=== PATIENT | female | born 1990 | race Caucasian/White ===

== ENCOUNTER → 2022-06-14 08:54 | Outpatient (CLI) | payer BC, SELFPAY ==
--- NOTE | ~2022-06-14 | US_ITS ---
EXAMINATION: US OB /maternal detail DATE: 06/14/2022 09:45 INDICATION: survey TECHNIQUE: Multiple obstetric sonographic images performed. FINDINGS: No prior studies for comparison. There is a single living fetus in breech presentation. The placenta is posterior without placenta pr evia. Placental margin to the cervix is 5 cm. Amniotic fluid volume is subjectively normal. cardiac activity and movement is noted with a heart rate of 143 beats per minute. The following anatomy was identified as normal: 4 chamber heart 3 vessel cord cord insertion kidneys urinary bladder stomach spine diaphragm ventricles cisterna magna cerebellum The following biometric data were obtained: BPD: 47mm corresponds to gestational age 20 weeks 1 days. Head circumference: 178 mm corresponds to gestational age 20 weeks 2 days. Abdominal circumference: 154 mm corresponds to gestational age 20 weeks 4 days. Femur length: 33 mm corresponds to gestational age 20 weeks 3 days. Head circumference to abdominal circumference ratio: 1.15 (normal range for expected gestational age is 1.07-1.25). Estimated weight: 358 grams +/- 54 grams using Hadlock method, 49%. IMPRESSION: 1: Single living intrauterine with an estimated gestational age of 20weeks 3days by current ultrasound measurements, with an EDC of 10/29/2022 in breech presentation. 2. Normal survey. Reviewed, dictated and finalized at location A. NKLER DRIVER IMPRESSION: 1: Single living intrauterine with an estimated gestational age of 20 weeks 3days by current ultrasound measurements, with an EDC of 10/29/2022 in gemma ech presentation. 2. Normal survey.
== END ==
PROVIDERS: PCP Advanced Practice Midwife; Visit Provider Advanced Practice Midwife
DX: Z36.9 Encounter for antenatal screening, unspecified (principal); Z3A.00 Weeks of gestation of pregnancy not specified
CPT/HCPCS: 76805

== ENCOUNTER → 2022-07-17 07:45 | Outpatient (CLI) | payer BC, SELFPAY ==
--- NOTE | ~2022-07-17 | US_ITS ---
Limited Abdominal Sonogram: Real-time sonographic imaging of the right upper quadrant was performed. Clinical History: Right upper quadrant pain Findings: The liver appears normal with no evidence of mass lesion or bile duct dilatation. Main por samir vein demonstrates normal direction of flow. The gallbladder is well distended, and appears normal with no evidence of gallstone or wall thickening. The common bile duct measures 4 mm. The visualize d pancreas, aorta, and IVC are unremarkable. Right kidney measures 11.1 cm in length. There is mild t o moderate right hydronephrosis. Impression: [id number] right hydronephrosis. No other significant findings. Reviewed, dictated and finalized at location . LER TENDER Impression: [id number] right hydronephrosis. No other significant findings.
== END ==
PROVIDERS: Visit Provider Obstetrics & Gynecology Gynecology
DX: R10.11 Right upper quadrant pain (principal); N13.30 Unspecified hydronephrosis
CPT/HCPCS: 76705

== ENCOUNTER 2022-10-24 07:49 | Inpatient (IN) | payer BC, SELFPAY ==
[2022-10-24] VITALS (124 sets, daily range): BP systolic 82–151; BP diastolic 48–129; PULSE 67–125; RESP 16–18; TEMP 36.2–36.4; O2SAT 79–100; BMI 27.5
--- NOTE | ~2022-10-24 | MR_ITS ---
EXAMINATION: MR lumbar spine wo/w con DATE: 10/26/2022 14:35 INDICATION: Left lower extremity weakness after epidural TECHNIQUE: Magnetic resonance imaging (MRI) of the lumbar spine was performed without and with 15 mL Multihance intravenous contrast. Sequences included sagittal T2-weighted FSE, sagittal T2-weighted FS FSE, and sagittal and axial T1-weighted FSE. Postcontrast sequences included axial T2-weighted FSE, sagittal T1-weighted FSE, and axial and sagittal T1-weighted FS FSE. COMPARISON: None FINDINGS: Alignment is normal. Vertebral body heights are normal. Normal marrow signal. This desiccation and m ild disc height loss at T11-T12. The conus medullaris terminates at L1-L2. There is normal signal in the caudal spinal cord. Normal appearance to the epidural fat throughout the lumbar and lower thoraci c spine. Mild subcutaneous edema posterior to the lumbar spine. Paravertebral soft tissues are otherw ise unremarkable. Enlarged post gravid uterus. No abnormally enhancing lesions identified. The follow ing disc levels are specifically discussed: T12-L1: Disc is mildly bulging. There is no facet joint osteoarthritis. There is no neural foraminal stenosis. There is no central canal stenosis. L1-L2: Disc is mildly bulging. There is mild bilateral facet joint osteoarthritis. There is no neural foraminal stenosis. There is minimal central canal stenosis. L2-L3: Disc is mildly bulging. There is mild bilateral facet joint osteoarthritis. There is no neural foraminal stenosis. There is mild central canal stenosis. L3-L4: Disc is mildly bulging. There is mild bilateral facet joint osteoarthritis. There is mild bila teral neural foraminal stenosis. There is mild central canal stenosis. L4-L5: Disc is mildly bulging. There is mild bilateral facet joint osteoarthritis. There is mild bila teral neural foraminal stenosis. There is mild central canal stenosis. L5-S1: Disc is minimally bulging. There is mild to moderate bilateral facet joint osteoarthritis. The re is no neural foraminal stenosis. There is no central canal stenosis. IMPRESSION: 1. Minimal to mild lumbar spondylosis. No evident acute abnormality. Reviewed, dictated and finalized at location A.
--- NOTE | 2022-10-24 08:55 | LDADM ---
This patient, Sowmya Vail, was admitted to Labor/Delivery/Recovery 104 on 10/24/22 at 07:49. Plans for labor, pain management and were discussed with patient. Patient/family oriented to hospital policies and general routines including ID bracelet, bed and alarms, visiting hours, pain management, procedures, bathroom and other care routines, personal items, smoking policy, room service/diet and guest tray routines, infant security routines, and visiting hours. Patient/Family are encouraged to report perceived risks to care and to ask questions if they do not understand what they are told or what they should do. See OBIX for further documentation.
[2022-10-24 09:11] LABS: Basophils Percent Auto 0.3 % (0.2-1.2); Eosinophils Percent Auto 0.2 % (0-4.4); Hematocrit 36.7 % (37.0-47.0); Hemoglobin 12.5 g/dL (12.0-15.0); Immature Granulocyte Absolute 0.15 K/mm3 (0.00-0.031); Immature Granulocyte Percent A 1.4 % (0-0.5); Lymphocytes Absolute Auto 1.74 K/mm3 (0.9-3.2); Lymphocytes Percent Auto 15.9 % (18.3-44.2); Mean Corpuscular HGB Conc 34.1 g/dl (32-36); Mean Corpuscular Hemoglobin 33.3 pg (26-34); Mean Corpuscular Volume 97.9 fl (80-100); Mean Platelet Volume 11.2 fl (7.4-10.4); Monocytes Absolute Auto 0.6 K/mm3 (0.1-0.6); Monocytes Percent Auto 5.6 % (2.6-8.5); Neutrophils Absolute Auto 8.4 K/mm3 (1.3-6.7); Neutrophils Percent Auto 76.6 % (45.5-73.1); Platelet Count Result 182 k/mm3 (150-375); Red Blood Count 3.75 M/mm3 (4.2-5.4); Red Cell Distribution Width 13.3 % (11.5-14.5); White Blood Count 10.9 K/mm3 (4.5-10.0)
[2022-10-24 11:30] LABS: Alanine Aminotransferase 18 U/L (6-35); Albumin Level 3.7 g/dL (3.5-5.1); Alkaline Phosphatase 282 U/L (38-126); Anion Gap 7 mmol/L (8-16); Aspartate Amino Transferase 29 U/L (14-36); Bilirubin,Total 0.5 mg/dL (0.2-1.3); Blood Urea Nitrogen 10 mg/dL (7-17); Calcium 8.8 mg/dL (8.4-10.2); Carbon Dioxide 23 mmol/L (22-30); Chloride 105 mmol/L (98-107); Estimated CRCL calculation 116 ml/min; Estimated Glomerular Filt Rate > 60; Glucose 79 mg/dL (65-110); Potassium 3.9 mmol/L (3.4-5.0); Sodium 135 mmol/L (137-145); Uric Acid 4.7 mg/dL (2.5-7.5)
[2022-10-24] MEDS: miSOPROStol 25 MCG TABLET PO (11:43)
--- NOTE | 2022-10-24 11:55 | WPDOBADMIT ---
Obstetrics - Admit Note Admission Note: record reviewed. No pertinent additions to the history and/or any subsequent changes in the physical findings that are not consistent with the expected course of the were found. Additions to the history and/or subsequent changes in the physical findings follow. SROM of clear fluid this am.
--- NOTE | 2022-10-24 11:56 | PM.OBPNLAB ---
Pain Control Date/time seen: 10/24/22 11:50 Pain control: tolerating well Comments: Sitting on labor ball. Pt's mother and spouse present and supportive. Feeling very occasional cramping. Contractions Monitor mode: External Contraction pattern: Irregular Status status: Category l Comments: Baseline 135 with moderate variability and accelerations. Assessment and Plan Assessment: induction ongoing Comments: CNM to bedside. Patient very comfortable at this time. tracing category 1 with occasional contractions. She recently had a buccal misoprostol. Denies leaking much amniotic fluid since spontaneous rupture this morning. Discussed option of breaking the forebag versus waiting. Plan to wait at least 4 hours and evaluate labor progress at that time. She would prefer rupture of the forebag before starting Pitocin. Discussed labor and process and all questions answered. Anticipate vaginal .
--- NOTE | 2022-10-24 12:00 | PM.OBDSVD ---
DS: Admitting Diagnosis Discharge Date 10/26/2022 Admitting Diagnosis 32 y.o. 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 2021 Anxiety GERD Hx Hypoglycemia DS: Discharge Diagnosis Discharge Diagnosis (1) (normal spontaneous vaginal delivery): Code(s): O80 - Encounter for full-term uncomplicated delivery Status: Acute (2) Lactating mother: Code(s): Z39.1 - Encounter for care and examination of lactating mother Status: Acute OB - DS: Summary Hospital Course Hospital Course: uncomplicated OB Procedures : Ultrasound OB Procedures Intrapartum: Spontaneous Vag Delivery and Other (Antibiotics for prolonged ROM) OB Procedures: : None Peripartum Data Infant Delivery Method: Natural Vaginal Laceration Description: Vaginal - 1st Degree and Labial Episiotomy description: None complications: none Status at Discharge Cognitive/behavioral status at discharge: WNL Overall status at discharge: patient is progressing back to baseline Time Spent with Patient Time attestation: Total time spent providing and/or coordinating discharge services: Exam Narrative: Alert and oriented. Mood is pleasant and cooperative. Urinating without difficulty. Denies passing any large clots. Perineum with minimal edema. Fundus firm and below umbilicus. Const: General: cooperative, healthy appearing, no acute distress and alert Orientation/consciousness: patient oriented x3 Limitations: no limitations Resp: Effort & Inspection: normal respiratory effort Auscultation: clear to auscultation bilaterally Cardio: Rate: regular rate GI: Inspection: normal to inspection Skin: General skin exam: normal color and other (peteichiae to face/neck) Neuro: General: patient oriented x3 Sensory Exam: normal sensation (to BLE) Extrem: General: normal to inspection Right lower extremity: normal to inspection and normal capillary refill Left lower extremity: normal to inspection and normal capillary refill Other: normal abduction and adduction to right hip. Slightly floppy abduction to left hip, UNABLE to adduct R hip. Equal pedal pulses. Trace edema to LLE, non pitting. Normal flexion and extension of both feet. Psych: Appearance: grossly normal Mental Status: mental status grossly normal Affect: normal affect Thought process: Normal thought process present DS: Data Data Completed and Pending Labs on day of discharge: Labs from last 24 hours 10/24/22 10/24/22 10/24/22 11:12 09:00 09:00 WBC RBC Hgb Hct MCV MCH MCHC RDW Plt Count MPV Immature Gran % (Auto) Neut % (Auto) Lymph % (Auto) [place] % (Auto) Eos % (Auto) Baso % (Auto) Lymph # (Auto) [place] # (Auto) Eos # (Auto) Baso # (Auto) Abs Immat Gran (auto) Absolute Neuts (auto) Absolute Nucleated RBC Nucleated RBC % Sodium 135 L Potassium 3.9 Chloride 105 Carbon Dioxide 23 Anion Gap 7 L BUN 10 Creatinine 0.60 L Estim Creat Clear Calc 116 Estimated GFR > 60 Glucose 79 Uric Acid 4.7 Calcium 8.8 Total Bilirubin 0.5 AST 29 ALT 18 Alkaline Phosphatase 282 H Total Protein 7.0 Albumin 3.7 RPR Pending Blood Type O Positive Antibody Screen Negative 10/24/22 09:00 WBC 10.9 H RBC 3.75 L Hgb 12.5 Hct 36.7 L MCV 97.9 MCH 33.3 MCHC 34.1 RDW 13.3 Plt Count 182 MPV 11.2 H Immature Gran % (Auto) 1.4 H Neut % (Auto) 76.6 H Lymph % (Auto) 15.9 L [place] % (Auto) 5.6 Eos % (Auto) 0.2 Baso % (Auto) 0.3 Lymph # (Auto) 1.74 [place] # (Auto) 0.6 Eos # (Auto) 0.0 Baso # (Auto) 0.0 Abs Immat Gran (auto) 0.15 H Absolute Neuts (auto) 8.4 H Absolute Nucleated RBC 0.0 Nucleated RBC % 0.0 Sodium Potassium Chloride Carbon Dioxide
[2022-10-24] MEDS: LACTATED RINGERS 1,000 ML 125 ML IV CONT ×2 (16:53→19:00)
[2022-10-24] MEDS: OXYTOCIN 30 UNITS/NS 500 ML 30 UNITS/500 ML BAG IV CONT (16:55)
--- NOTE | 2022-10-24 17:11 | PM.OBPNLAB ---
Pain Control Date/time seen: 10/24/22 17:00 Pain control: tolerating well Comments: Feeling occasional cramping. Pelvic Exam Dilation (cm): 1 (1.5) Effacement (%): 80 station: -1 Comments: Forebag ruptured. Contractions Monitor mode: External Contraction pattern: Irregular Status status: Category l Assessment and Plan Pitocin rate (mU/min): 2 Plan: begin patient augmentation Comments: Discussed plan of care. Pt agreeable to rupturing forebag. Amniotomy performed and small amount of pink tinged fluid returned. Discussed IUPC placement but pt declines at this time. Plan to increase oxytocin as needed to achieve adequate contraction pattern. Discussed starting antibiotics at 18 hours of rupture for infection prophylaxis. Pt is agreeable. Anticipate vaginal .
[2022-10-24 17:15] LABS: Rapid Plasma Reagin Non-Reactive (NonReactive)
--- NOTE | 2022-10-24 18:38 | WPDANESEPP ---
Anes - Eval Pre Procedure Procedure: labor epidural Date/Time: 10/24/22 18:38 Surgeon: obie Preop Diagnosis: pain during labor Pre Op Diagnosis: Leaking Patient Data Age: 32 Gender: F Height: 1.65 m Weight: 75 kg Last Vital Signs Temp 36.4 C L 10/24/22 18:00 Pulse 95 10/24/22 18:31 Resp 18 10/24/22 18:00 BP 122/85 10/24/22 18:31 O2 Del Method Room Air 10/24/22 08:52 Allergies Allergy/AdvReac Type Severity Reaction Status Date / Time No Known Allergies Allergy Unknown Verified 06/19/14 23:00 Home Medications Medication Instructions Recorded Confirmed Type aspirin 81 mg tablet 81 mg PO DAILY 10/03/22 10/03/22 History ferrous sulfate 325 mg (65 mg 325 mg PO EVERY OTHER DAY 10/03/22 10/03/22 History iron) tablet prenat.vits,eliseo,sek-kifx-ehjkc 1 tablet PO HS 10/03/22 10/03/22 History calcium carbonate-vitamin D3 500 2 cap PO DAILY 10/24/22 10/24/22 History mg (1,250 mg)-50 unit capsule polyethylene glycol 3350 17 17 g PO DAILY 10/24/22 10/24/22 History gram/dose oral powder (Miralax) valacyclovir 500 mg tablet 500 mg PO DAILY 10/24/22 10/24/22 History Laboratory Tests 10/24/22 10/24/22 10/24/22 09:00 09:00 09:00 WBC 10.9 K/mm3 H K/mm3 (4.5-10.0) RBC 3.75 M/mm3 L M/mm3 (4.2-5.4) Hgb 12.5 g/dL g/dL (12.0-15.0) Hct 36.7 % L % (37.0-47.0) MCV 97.9 fl fl (80-100) MCH 33.3 pg pg (26-34) MCHC 34.1 g/dl g/dl (32-36) RDW 13.3 % % (11.5-14.5) Plt Count 182 k/mm3 k/mm3 (150-375) MPV 11.2 fl H fl (7.4-10.4) Immature Gran % (Auto) 1.4 % H % (0-0.5) Neut % (Auto) 76.6 % H % (45.5-73.1) Lymph % (Auto) 15.9 % L % (18.3-44.2) [place] % (Auto) 5.6 % % (2.6-8.5) Eos % (Auto) 0.2 % % (0-4.4) Baso % (Auto) 0.3 % % (0.2-1.2) Lymph # (Auto) 1.74 K/mm3 K/mm3 (0.9-3.2) [place] # (Auto) 0.6 K/mm3 K/mm3 (0.1-0.6) Eos # (Auto) 0.0 K/mm3 K/mm3 (0-0.3) Baso # (Auto) 0.0 K/mm3 K/mm3 (0.0-0.1) Abs Immat Gran (auto) 0.15 K/mm3 H K/mm3 (0.00-0.031) Absolute Neuts (auto) 8.4 K/mm3 H K/mm3 (1.3-6.7) Absolute Nucleated RBC 0.0 K/mm3 K/mm3 (0.0-0.012) Nucleated RBC % 0.0 % % (0.0-0.2) Sodium Potassium Chloride Carbon Dioxide Anion Gap BUN Creatinine Estim Creat Clear Calc Estimated GFR Glucose Uric Acid Calcium Total Bilirubin AST ALT Alkaline Phosphatase Total Protein Albumin RPR Non-reactive (NonReactive) Blood Type O Positive Antibody Screen Negative 10/24/22 11:12 WBC RBC Hgb Hct MCV MCH MCHC RDW Plt Count MPV Immature Gran % (Auto) Neut % (Auto) Lymph % (Auto) [place] % (Auto) Eos % (Auto) Baso % (Auto) Lymph # (Auto) [place] # (Auto) Eos # (Auto) Baso # (Auto) Abs Immat Gran (auto) Absolute Neuts (auto) Absolute Nucleated RBC Nucleated RBC % Sodium 135 mmol/L L mmol/L (137-145) Potassium 3.9 mmol/L mmol/L (3.4-5.0) Chloride 105 mmol/L mmol/L (98-107) Carbon Dioxide 23 mmol/L mmol/L (22-30) Anion Gap 7 mmol/L L mmol/L (8-16) BUN 10 mg/dL mg/dL (7-17) Creatinine 0.60 mg/dL L mg/dL (0.7-1.0) Estim Creat Clear Calc 116 ml/min ml/min Estimated GFR > 60 (59 - ) Glucose 79 mg/dL mg/dL (65-110) Uric Acid 4.7 mg/dL mg/dL (2.5-7.5) Calcium 8.8 mg/dL mg/dL (8.4-10.2) Total Bilirubin 0.5 mg/dL mg/dL (0.2-1.3) AST 29 U/L U/L (14-36) ALT 18
[2022-10-24] MEDS: ONDANSETRON INJ 4 MG/2 ML VIAL IV PUSH (20:36)
[2022-10-25] VITALS (22 sets, daily range): BP systolic 77–144; BP diastolic 49–112; PULSE 72–117; RESP 16; TEMP 36.2–36.6; O2SAT 95–98
[2022-10-25] MEDS: AMPICILLIN 2 GM/NS 100 ML 2 GM/100 ML BAG IVPB (00:20)
[2022-10-25] MEDS: OXYTOCIN 30 UNITS/NS 500 ML 30 UNITS/500 ML BAG 125 UNITS IV CONT (02:05)
--- NOTE | 2022-10-25 02:28 | PM.OBPRVD ---
OB - Delivery Note Procedure Delivery date: 10/25/22 Procedure: Induction method: Per Misoprostol Protocol and Per Pitocin Protocol Delivery monitor: External FHT and External Uterine Route of delivery: Episiotomy description: None Laceration Description: Vaginal and Labial (2cm left lower labial, 5cm right labial and full thickness tear) Delivery repair: vicryl Specimen: No Quantitative Blood Loss (ml): 250 Anesthesia type: Epidural Disposition: Floor Narrative: Patient arrived to Labor and delivery after spontaneous rupture of membranes. After 4 hours, and no cervical change, she was given buccal misoprostol. After that time her forebag was ruptured and oxytocin was started. She progressed to complete dilation and pushed with contractions. She brought the head to a crown and delivered over an intact perineum. There was good restitution, followed by delivery of the anterior and posterior shoulders and the remainder of the . Terminal meconium was noted as the infant was placed on the maternal abdomen and dried and stimulated by the nursery team. After 1 minute of life, the cord was doubly clamped and cut. Cord blood, cord gases, and cord segment were obtained. There was excellent hemostasis. All delivery counts correct. Mother and baby skin to skin in the delivery room. weight unavailable at the time of this note. Baby Date of : 10/25/22 Time of : 01:29 Weeks of gestation at delivery: 39 gender: Female presentation: vertex position: Right Occiput Anterior Placenta delivery description: Spontaneous Cord Vessel Description: 3 Vessels, Clamped/Cut and Delayed Cord Clamping score one minute: 9 score five minutes: 9
[2022-10-25] MEDS: BENZOCAINE 20% AER SPR (*SP) 56 GM CAN 1 SPRAY (04:36)
[2022-10-25] MEDS: WITCH HAZEL 40 PADS 1 PAD (04:36)
[2022-10-25] MEDS: IBUPROFEN 600 MG TABLET PO ×3 (05:30→17:29)
[2022-10-25] MEDS: MULTIVIT/MIN/PREN/FOL AC/IRON TABLET 1 TAB PO (07:36)
[2022-10-25] MEDS: DOCUSATE SODIUM 100 MG CAPSULE PO ×2 (07:36→17:31)
[2022-10-25] MEDS: ACETAMINOPHEN 325 MG TABLET 650 MG PO ×2 (13:58→20:33)
[2022-10-26] MEDS: IBUPROFEN 600 MG TABLET PO ×3 (00:04→17:18)
[2022-10-26 00:05] VITALS: BP 117/76; PULSE 75; RESP 16; TEMP 36.3; O2SAT 100
[2022-10-26] MEDS: ACETAMINOPHEN 325 MG TABLET 650 MG PO ×2 (04:37→12:19)
[2022-10-26 05:38] LABS: Hematocrit 32.7 % (37.0-47.0); Hemoglobin 10.7 g/dL (12.0-15.0)
[2022-10-26] MEDS: MULTIVIT/MIN/PREN/FOL AC/IRON TABLET 1 TAB PO (07:34)
[2022-10-26] MEDS: DOCUSATE SODIUM 100 MG CAPSULE PO ×2 (07:34→17:19)
--- NOTE | 2022-10-26 07:48 | PC.NURSE ---
Patient viewed the discharge video Mother & Baby Care, The First Two Weeks . Patient was given the opportunity and encouraged to ask questions. Patient verbalized understanding of information shared and has been given the mother/baby guide for home reference.
[2022-10-26 08:00] VITALS: BP 118/79; PULSE 67; RESP 16; TEMP 36.9; O2SAT 97
--- NOTE | 2022-10-26 09:13 | PM.OBPNVD ---
OB - PN: Subj Subjective Date/time seen: 10/26/22 0855 Interval history: Pt reports left leg weakness since delivery. She repots this has improved since yesterday. She denies numbness, tingling, burning, or swelling. Patient comments: pain well controlled [place] baby status: doing well and other (pumping and bottle feeding/formula feeding.) OB - PN: Obj Data Labs 10/26/22 04:42 10/24/22 11:12 Labs: Laboratory Results - last 24 hr 10/26/22 04:42 Hgb 10.7 L Hct 32.7 L OB - PN A/P Time Spent With Patient Time: Total time spent is greater than 50% in coordination of care (as documented) at patient's floor/unit and/or counseling patient: Review of Systems Review of Systems: All systems reviewed & are unremarkable except as noted in HPI and below Musculoskeletal: Musculoskeletal: Reports abnormal gait and Reports other Comments: reports she is unable to lift her left leg and place it onto the right leg while resting. She can walk and denies weakness but reports being unable to lead with the left. She reports being able to move the leg away from her body but has no control when she tries to move it inward . Reports that when she received her epidural, her left leg went numb right away but the right did not. Reprots having a hot spot on her right side and needing extra doses of epidural anesthesia. Reports needing to use the Jacki Steady to get out of bed yesterday but has some slight improvement today. Encouraged pt to speak with anesthesia provider when they round today and to discuss follow up plan. Exam Narrative: Alert and oriented. Mood is pleasant and cooperative. Urinating without difficulty. Denies passing any large clots. Perineum with minimal edema. Fundus firm and below umbilicus. Const: General: cooperative, healthy appearing, no acute distress and alert Orientation/consciousness: patient oriented x3 Limitations: no limitations Resp: Effort & Inspection: normal respiratory effort Auscultation: clear to auscultation bilaterally Cardio: Rate: regular rate GI: Inspection: normal to inspection Skin: General skin exam: normal color and other (peteichiae to face/neck) Neuro: General: patient oriented x3 Sensory Exam: normal sensation (to BLE) Extrem: General: normal to inspection Right lower extremity: normal to inspection and normal capillary refill Left lower extremity: normal to inspection and normal capillary refill Other: normal abduction and adduction to right hip. Slightly floppy abduction to left hip, UNABLE to adduct R hip. Equal pedal pulses. Trace edema to LLE, non pitting. Normal flexion and extension of both feet. Psych: Appearance: grossly normal Mental Status: mental status grossly normal Affect: normal affect Thought process: Normal thought process present
--- NOTE | 2022-10-26 09:28 | PM.OBPNVD ---
OB - PN: Subj Subjective Date/time seen: 10/26/22 09:15 Interval history: Spoke with Filomena Dhillon CRNA at nurses station about pt's complaints. Provider to see pt this am. OB - PN: Obj Data Labs 10/26/22 04:42 10/24/22 11:12 Labs: Laboratory Results - last 24 hr 10/26/22 04:42 Hgb 10.7 L Hct 32.7 L OB - PN A/P Time Spent With Patient Time: Total time spent is greater than 50% in coordination of care (as documented) at patient's floor/unit and/or counseling patient:
--- NOTE | 2022-10-26 09:31 | P.PNAN_ITS ---
Anes-Prog Note L&D Date/Time: 10/26/22 09:31 Comfortable throughout: labor and delivery Neuraxial method: epidural Epidural/Spinal procedure site: clean & non-tender Neuro status: Neuro function grossly intact. Cardiovascular status: normal Respiratory status: normal Airway patency: baseline Mental status: baseline Post-Op hydration status: normal Vital Signs: Last Vital Signs Temp 98.4 F 10/26/22 08:00 Pulse 67 10/26/22 08:00 Resp 16 10/26/22 08:00 BP 118/79 10/26/22 08:00 Pulse Ox 97 10/26/22 08:00 O2 Del Method Room Air 10/26/22 08:00 Pain score (VAS): 0 I/O: Intake & Output 10/25/22 10/26/22 10/26/22 23:59 07:59 15:59 Intake Total 240 Balance 240 Post-procedural complaints: none Patient feedback: Patient satisfied with anesthetic care. pt having complaints of difficulty adducting left leg. demonstrates that she is able to adduct but not fully cross her left leg over her right leg. pt up in room and standing without weakness. no motor deficit on ambulation, equal dorsiflexion & plantar flexion.equal adduction & abduction of lower extremity with good strength. pt does state she feels much better today than yesterday . chart review & pt reports both confirm epidural was uneventful and pt did receive bilateral relief. initial hot spot on right groin resolved with positioning. pt did state left side of epidural set up quicker than the left. this is not an abnormal finding. while we cannot rule out pt could be experiencing residual effects of epidural vs pressure of baby during labor & delivery vs size of baby and subsequent vaginal tears I did encouraged pt to follow up with anesthesiology department and/or trade facilitator if concerns persist.
--- NOTE | 2022-10-26 13:41 | WPDNEURCNPN ---
Assessment and Plan Assessment and plan (1) Left leg weakness: Code(s): R29.898 - Other symptoms and signs involving the musculoskeletal system Status: Acute (2) (normal spontaneous vaginal delivery): Code(s): O80 - Encounter for full-term uncomplicated delivery Status: Acute (3) IUP (intrauterine ), incidental: Code(s): Z33.1 - state, incidental Status: Acute Plan Sowmya Vail is a 32 year old female with a history of ocular migraines and anxiety who recently had an uncomplicated and delivery, having concerns for new left lower extremity weakness after receiving epidural injection prior to delivery. She noted significantly more weakness in the left leg compared to the right post-epidural. She has had improvement in strength since delivery, but still has some mild weakness with left hip adduction. Suspect residual affect from epidural vs irritation of obturator nerve during peripartum period, especially since patient seems to be improving. Nonetheless, will obtain MRI lumbar spine to rule out other secondary causes. - MRI lumbar spine w/wo contrast Consult date: 10/26/22 Reason for consult: Left leg weakness HPI: Sowmya Vail is a 32 year old female with a history of ocular migraines and anxiety who recently had an uncomplicated and delivery, having concerns for new left lower extremity weakness. Patient presented on 10/24 due to labor. She did receive an epidural injection, documented at approximately L4-L5 in anesthesia not. Patient reports that after she received the epidural, she noted a dramatic difference in the strength of her right and left leg. She had some strength in the right leg, but reports that she could not move her left leg at all ( it was like a mannequin leg ). Patient has uncomplicated vaginal delivery, but has had residual weakness in the left leg -- specifically with adduction. She denies any sensory changes in the legs or perineal region. She denies any urinary incontinence. She does feel like the weakness has improved over the last day. She denies any upper extremity weakness. She has a very mild headache, but no other significant complaints. Review of Systems Constitutional: Constitutional: Reports no additional constitutional complaints Eyes: Eyes: Reports no additional eye complaints ENT: Reports system reviewed and no additional complaints, except as documented Cardiovascular: Cardiovascular: Reports no additional cardiovascular complaints Respiratory: Respiratory: Reports no additional respiratory complaints Gastrointestinal: Gastrointestinal: Reports no additional gastrointestinal complaints Genitourinary: Genitourinary: Reports no additional female genitourinary complaints Musculoskeletal: Musculoskeletal: Reports no additional musculoskeletal complaints Integumentary/Breasts: Skin/Breast: Reports system reviewed and no additional complaints, except as docu Neurologic: Reports as per HPI Psychiatric: Psychiatric: Reports no additional psychiatric complaints PMFSH Past Medical History Medical History IUP (intrauterine ), incidental Social History Social History Substance use: never Spiritual care concerns: No Meds Home Medications and Allergies Home Medications Medication Instructions Recorded Confirmed Type docusate sodium 100 mg capsule 100 mg PO BID 30 days #60 caps 10/25/22 Rx (Colace) ibuprofen 600 mg tablet 600 mg PO Q6H PRN pain #30 tabs 10/25/22 Rx ibuprofen 600 mg tablet 600 mg PO Q6H PRN Cramping 14 days 10/26/22 Rx #30 tabs Allergies Allergy/AdvReac Type Severity Reaction Status Date / Time No Known Allergies Allergy Unknown Verified 06/19/14 23:00 Vital Signs Vital Signs - 24 hr 10/25/22 20:15 10/26/22 00:05 10/26/22 08:00 Temp
--- NOTE | 2022-10-26 14:01 | PC.NURSE ---
To MRI via wheelchair.
--- NOTE | 2022-10-26 14:37 | PC.NURSE ---
Pt returned from MRI via wheelchair; tolerated procedure well.
[2022-10-26 18:23] VITALS: BP 121/79; PULSE 71; RESP 18; TEMP 36.6; O2SAT 98
[2022-10-27] MEDS: IBUPROFEN 600 MG TABLET PO ×2 (04:25→10:31)
--- NOTE | 2022-10-27 07:48 | PM.OBPNVD ---
OB - PN: Subj Subjective Date/time seen: 10/27/22 07:40 Interval history: Sowmya is doing well. Her left leg strength and control is greatly improved from yesterday. Patient comments: no complaints and pain well controlled baby status: doing well and other (pumping and bottle feeding. ) OB - PN: Obj Data Labs 10/26/22 04:42 10/24/22 11:12 Imaging Radiologist's impression: Impressions Lumbar Spine MRI 10/26/22 16:47 IMPRESSION: 1. Minimal to mild lumbar spondylosis. No evident acute abnormality. OB - PN A/P Plan day: 2 Plan: discharge home and follow up 6 weeks Time Spent With Patient Time: Total time spent is greater than 50% in coordination of care (as documented) at patient's floor/unit and/or counseling patient: Review of Systems Review of Systems: All systems reviewed & are unremarkable except as noted in HPI and below Exam Narrative: Alert and oriented. Mood is pleasant and cooperative. Urinating without difficulty. Denies passing any large clots. Perineum with minimal edema. Fundus firm and below umbilicus. Pedal pulses equal and strong. Better adduction of left hip than yesterday. Const: General: cooperative, healthy appearing, no acute distress and alert Orientation/consciousness: patient oriented x3 Limitations: no limitations Resp: Effort & Inspection: normal respiratory effort Auscultation: clear to auscultation bilaterally Cardio: Rate: regular rate GI: Inspection: normal to inspection Neuro: General: patient oriented x3 Extrem: General: normal to inspection Psych: Appearance: grossly normal Mental Status: mental status grossly normal Affect: normal affect Thought process: Normal thought process present
[2022-10-27 08:30] VITALS: BP 128/89; PULSE 70; RESP 16; TEMP 36.9; O2SAT 100
--- NOTE | 2022-10-27 08:30 | PC.NURSE ---
Pt. states her left leg which she complained about yesterday, is much better today. She has feeling in her leg and no pain. Pt is ready to go home, she discussed the plan of care with Kevin Medina CNM and agrees with the plan to be discharged to home.
[2022-10-27] MEDS: MULTIVIT/MIN/PREN/FOL AC/IRON TABLET 1 TAB PO (10:31)
[2022-10-28 09:53] VITALS: BP 130/87; PULSE 76; RESP 16; TEMP 36.6; O2SAT 97
== END 2022-10-27 11:35 | disposition home or self-care (01) | DRG 807 ==
LOC: ANHLDR 12:03 → ANHOB2 10-25 05:02
PROVIDERS: Advanced Practice Midwife; Admitting Provider Obstetrics & Gynecology Gynecology; PCP Internal Medicine; Visit Provider Obstetrics & Gynecology Gynecology
DX: O99.62 Diseases of the digestive system complicating childbirth (principal); Z37.0 Single live birth; O70.0 First degree perineal laceration during delivery; O99.344 Other mental disorders complicating childbirth; T41.3X5A Adverse effect of local anesthetics, initial encounter; M62.81 Muscle weakness (generalized); K21.9 Gastro-esophageal reflux disease without esophagitis; Z3A.39 39 weeks gestation of pregnancy; O42.92 Full-term premature rupture of membranes, unspecified as to length of time between rupture and onset of labor; Z85.828 Personal history of other malignant neoplasm of skin
CPT/HCPCS: 36415; 72158; 80053; 84112; 84550; 85014; 85018; 85025; 86592; 86850; 86900; 86901; A9270; A9577; J0290; J2405; J2590; J2795; J7120